=== PATIENT | female | born 2000 | race Hispanic/Latino ===

== ENCOUNTER 2021-12-09 19:11 | Emergency (ER) | payer MEDICAID ==
[~2021-12-09] VITALS: Ht 165.1 cm; Wt 97.5 kg
[2021-12-09 19:14] VITALS: BP 135/72
[2021-12-09] MEDS ORDERED: SULF1TAB42 PO (20:11)
[2021-12-09] MEDS ORDERED: NAPR500T6 PO (20:11)
[2021-12-09] MEDS ORDERED: SULFAMETHOX-TMP DS 800/160 TAB PO SCH (20:30)
[2021-12-09] MEDS ORDERED: KETOROLAC 30MG VIAL (30MG/ML) IM ONE (20:30)
== END 2021-12-09 20:30 | disposition home or self-care (01) ==
LOC: EDH 19:11
DX: L03.116 Cellulitis of left lower limb (principal); Z79.899 Other long term (current) drug therapy
CPT/HCPCS: 96372; 99283; J1885